=== PATIENT | female | born 1930 | race Caucasian/White ===

== ENCOUNTER 2018-06-16 14:05 | Inpatient (IN) | payer MEDICARE, OTHER ==
[2018-06-16] MEDS ORDERED: NS 0.9% 1000 ML* 1,000 ML IV ONE (14:52)
--- NOTE | 2018-06-16 15:09 | ED ---
Neurological HPI - HPI Summary HPI Summary: A 87 y/o female accompanied by a friend presents to ED c/o confusion. Currently , the patient is fine and has no pain. In the ED room, the patient has a pulse of 77 BPM, O2 saturation of 91% and blood pressure of 174/86. As per triage, " pt here with gentleman. reports she was ill with an upset stomach on Sunday. After that episode pt having difficulty remembering anything after breakfast on Sunday. pt is a/ox4 and able to answer questions in triage". As per friend, the patient has been experiencing confusion for the past 4 days ( since last 06/11/2018). He noted that Sunday (06/10/2018) she was fine. On Sunday when [place], they had breakfast together where that same day she traveled home alone to her apartment. In addition to the confusion, she became "violently ill" on Sunday. The patient stated that on Sunday her stomach was upset and painful, however, doesn't remember anything after. The friend noted that he talks to her everyday and picked her up on Sunday. He brought her here today because she cannot remember the little things such as his dogs name. She was never like that before. The patient noted that she did have abdominal pain, vomiting (4x), diarrhea (4x), constipation and nausea, but that has resolved. Denies any weakness or numbness. Denies PMHx of CVA. SHx of beer or two every night. - History of Current Complaint Chief Complaint: EDNeurologicalDeficit Stated Complaint: CONFUSION Time Seen by Provider: 06/16/18 14:25 Hx Obtained From: Patient Onset/Duration: Sudden Onset, Started days ago Timing: Constant Current Severity: None Number of Seizures: 0 Pain Intensity: 0 Pain Scale Used: 0-10 Numeric Character: Confusion Aggravating: Nothing Alleviating: Nothing Associated Signs and Symptoms: Positive: Confusion, Nausea/Vomiting, Diarrhea. Negative: Numbness, Fever - Allergy/Home Medications Allergies/Adverse Reactions: Allergies Allergy/AdvReac Type Severity Reaction Status Date / Time erythromycin base Allergy Airway Verified 06/16/18 14:15 Obstruction Home Medications: Home Medications Aspirin 81 mg PO SEE INSTRUCTIONS 06/16/18 [History Confirmed 06/16/18] Cholecalciferol (Vitamin D3) [Vitamin D3] 2,000 unit PO DAILY 06/16/18 [History Confirmed 06/16/18] Levothyroxine TAB* [Synthroid 88 MCG TAB*] 88 mcg PO DAILY 06/16/18 [History Confirmed 06/16/18] Lisinopril 10 mg PO DAILY 06/16/18 [History Confirmed 06/16/18] Vit C/E/Zinc/Lutein/Zeaxanthin [Ocuvite [facility]] 1 tab PO DAILY 06/16 [History Confirmed 06/16/18] amLODIPine TAB* 88 mcg PO DAILY 06/16/18 [History Confirmed 06/16/18] PMH/Surg Hx/FS Hx/Imm Hx Endocrine/Hematology History: Reports: Other Endocrine/Hematological Disorders - Thyroid issues Denies: Hx Diabetes Cardiovascular History: Reports: Hx Hypertension - Surgical History Surgery Procedure, Year, and Place: Tonsillectomy, hysterectomy, appendectomy. Infectious Disease History: No Infectious Disease History: Denies: Traveled Outside the [place] in Last 30 Days - Family History Known Family History: Positive: Diabetes Negative: Hypertension - Social History Alcohol Use: Daily Alcohol Amount: 2 beers Substance Use Type: Reports: None Smoking Status (MU): Former Smoker Review of Systems Negative: Fever Positive: Abdominal Pain, Vomiting, Diarrhea, Nausea, Other - POSITIVE: Constipation Neurological: Other - POSITIVE: Confusion All Other Systems Reviewed And Are Negative: Yes Physical Exam - Summary Physical Exam Summary: Appearance: Well appearing, no pain distress Skin: warm, dry, reflects adequate perfusion Head/face: normal Eyes: EOMI, LUIS ENT: normal Neck: supple, non-tender Respiratory: CTA, breath sounds present Cardiovascular: RRR, pulses symmetrical Abdomen: non-tender, soft Bowel: present Musculoskeletal: normal, strength/ROM intact Neuro: normal, sensory motor intact, A&Ox3 GCS: 15 Triage Information Reviewed: Yes Vital Signs On Initial Exam: Initial Vitals Temp Pulse Resp BP Pulse Ox 97.4 F 79 16 148/78 99 06/16/18 14:18 06/16/18 14:18 06/16/18 14:18 06/16/18 14:18 06/16/18 14:18 Vital Signs Reviewed: Yes Diagnostics - Vital Signs Vital Signs Temp Pulse Resp BP Pulse Ox 06/16/18 14:31 76 16 174/86 98 08/26/18 14:18 97.4 F 79 16 148/78 99 - Laboratory Result Diagrams: 06/16/18 15:11 06/16/18 17:05 Lab Statement: Any lab studies that have been ordered have been reviewed, and results considered in the medical decision making process. - Radiology CXR Radiology Interpretation Completed By: Radiologist - No radiographic evidence for acute cardiopulmonary abnormality on this portable chest x-ray. ED PHYSICIAN REVIEWED THIS RADIOLOGY REPORT. - CT BRAIN CT CT Interpretation Completed By: Radiologist - 1. There is asymmetric multifocal hypoattenuation at the right temporal lobe of unknown chronicity in the absence of prior CTs for comparison. If the patient is exhibiting focal neurologic deficits further characterization can be made with MRI of the brain to evaluate for signs of an acute infarction. 2. Otherwise chronic appearing and age- appropriate degenerative changes are noted. ED PHYSICIAN REVIEWED THIS RADIOLOGY REPORT. - EKG 1503 Cardiac Rate: NL - 72 BPM EKG Rhythm: Sinus Rhythm EKG Interpretation: No acute changes NIH Scale - NIH Scale Level of Consciousness: Alert/Keenly Responsive Ask Patient the Month and His/Her Age: Both Correct Ask Pt to Open/Close Eyes and Rn Immunology/Release Non-Paretic Hand: Both Correctly Best Gaze (Only Horizontal Eye Movement): Normal Visual Field Testing: No Visual Loss Facial Paresis-Pt to Smile & Close Eyes or Grimace Symmetry: Normal/Symmetrical Motor Function - Right Arm: No Drift-Holds 10 Seconds Motor Function - Left Arm: No Drift-Holds 10 Seconds Motor Function - Right Leg: No Drift-Holds 10 Seconds Motor Function - Left Leg: No Drift-Holds 10 Seconds Limb Ataxia-Must be out of Proportion to Weakness Present: Absent Sensory (Use Pinprick to Test Arms/Legs/Trunk/Face): Normal Best Language (Describe Picture, Name Items): No Aphasia Dysarthria (Read Several Words): Normal Extinction and Inattention: No Abnormality Total Score: 0 Course/Dx - Course Course Of Treatment: A 87 y/o female accompanied by a friend presents to ED c/o confusion. Currently, the patient is fine and has no pain. In the ED room, the patient has a pulse of 77 BPM, O2 saturation of 91% and blood pressure of 174/ 86. A Brain CT revealed 1. There is asymmetric multifocal hypoattenuation at the right temporal lobe of unknown chronicity in the absence of prior CTs for comparison. If the patient is exhibiting focal neurologic deficits further characterization can be made with MRI of the brain to evaluate for signs of an acute infarction. 2. Otherwise chronic appearing and age-appropriate degenerative changes are noted. A CXR revealed No radiographic evidence for acute cardiopulmonary abnormality on this portable chest x-ray. An EKG revealed NSR of 72 BPM, no acute changes. In the ED course, the patient recieved IV fluids. Patient care was discussed with hospitalist, Dr. Aburto, who accepts patient for admission. Patient will be admitted with a diagnosis of amnesia, altered mental status and TIA. Patient is agreeable with this plan. - Differential Dx Differential Diagnoses Neuro: Positive: Cerebrovascular Accident, Intracranial Bleed, Metabolic Abnormality, Transient Ischemic Attack, Vasovagal Reaction - Diagnoses Provider Diagnoses: Amnesia, Altered mental status, TIA (transient ischemic attack) - Physician Notifications Discussed Care Of Patient With: Love De Souza Time Discussed With Above Provider: 17:15 Instructed by Provider To: Other - Accepts patient for admission. - Critical Care Time Critical Care Time: 30-74 min Discharge - Sign-Out/Discharge Documenting (check all that apply): Patient Departure - ADMIT - Discharge Plan Condition: Stable Disposition: ADMITTED TO [facility] Referrals: No Primary Care Phys,NOPCP [Primary Care Provider] - - Billing Disposition and Condition Condition: STABLE Disposition: Admitted to [facility] - Attestation Statements Document Initiated by Cristhianibnoni: Yes Documenting Scribe: Francisco Pierre Provider For Whom Scribe is Documenting (Include Credential): Kit Hernández MD Scribe Attestation: Francisco Saldivar scribed for Kit Hernández MD on 06/16/18 at 1846. Scribe Documentation Reviewed: Yes Provider Attestation: The documentation as recorded by the Francisco herman accurately reflects the service I personally performed and the decisions made by , Kit Hernández MD
[2018-06-16 15:25] LABS: ABS Basophils 0 10^3/ul (0-0.2); ABS Eosinophils 0.3 10^3/ul (0-0.6); ABS Lymphocytes 1.8 10^3/ul (1.0-4.8); ABS Monocytes 0.6 10^3/ul (0-0.8); ABS Neutrophils 3.7 10^3/ul (1.5-7.7); ABS Nucleated RBC 0 10^3/ul; Eosinophil % 4.9 % (0-6); Hematocrit 42 % (35-47); Hemoglobin 14.3 g/dl (12.0-16.0); Lymphocyte % 27.8 % (25-47); Mean Corpuscular HGB Conc 34 g/dl (31-36); Mean Corpuscular Hemoglobin 33 pg (27-31); Mean Corpuscular Volume 96 fL (80-97); Mean Platelet Volume 8.6 um3 (7.4-10.4); Nucleated Red Blood Cells % 0.1; Platelet Count 288 10^3/ul (150-450); Red Blood Count 4.35 10^6/ul (4.00-5.40); Red Cell Distribution Width 14 % (10.5-15); White Blood Count 6.4 10^3/ul (3.5-10.8)
[2018-06-16 15:33] LABS: INR 0.88 (0.77-1.02)
[2018-06-16 15:40] LABS: EGFR Non-African American 51.3 (>60)
--- NOTE | 2018-06-16 16:07 | RAD ---
INDICATION: Altered mental status COMPARISON: None. TECHNIQUE: Single AP portable view of the chest was obtained. FINDINGS: Image quality is compromised due to the relative inferiority of a portable chest x-ray. The heart and mediastinum exhibit normal size and contour. The lungs are grossly clear. There is no evidence of a large pleural effusion. Visualized bones are normal for the patient's age. IMPRESSION: No radiographic evidence for acute cardiopulmonary abnormality on this portable chest x-ray.
--- NOTE | 2018-06-16 16:07 | RAD ---
INDICATION: Altered mental status COMPARISON: None. TECHNIQUE: Contiguous axial sections of the brain were obtained from the skull base to the vertex without contrast. FINDINGS: The ventricles, cisterns and sulci exhibit symmetrical and age-appropriate involutional changes. At the posterior right temporal lobe there are several subcentimeter foci of hypoattenuation not matched on the contralateral side (axial image 8). There is mild to moderate periventricular and subcortical white matter hypoattenuation most consistent with chronic microvascular disease. The pickens-white matter differentiation is adequately maintained and there is no sulcal effacement. No significant focal abnormality or mass effect is present. There is no evidence for intracranial hemorrhage. No significant focal osseous abnormality is present. The visualized portion of the paranasal sinuses appear clear. The mastoid air cells are well aerated bilaterally. IMPRESSION: 1. There is asymmetric multifocal hypoattenuation at the right temporal lobe of unknown chronicity in the absence of prior CTs for comparison. If the patient is exhibiting focal neurologic deficits further characterization can be made with MRI of the brain to evaluate for signs of an acute infarction. 2. Otherwise chronic appearing and age-appropriate degenerative changes are noted.
[2018-06-16 16:30] LABS: Urine Appearance Clear; Urine Blood Negative (Negative); Urine Color Straw; Urine Ketones Negative (Negative); Urine Protein Negative (Negative); Urine Red Blood Cell Trace(0-2/hpf) (Absent); Urine Specific Gravity 1.004 (1.010-1.030); Urine Urobilinogen Negative (Negative); Urine White Blood Cell Trace(0-5/hpf) (Absent)
[2018-06-16] MEDS ORDERED: Ondansetron INJ* 2 MG/ML VIAL IV PRN (18:05)
[2018-06-16] MEDS ORDERED: Acetaminophen TAB* 325 MG PO PRN (18:05)
[2018-06-16] MEDS ORDERED: Magnesium Sulfate 2 GM IV* 2 GM/50 ML BAG IVPB ONE (18:24)
[2018-06-16] MEDS ORDERED: Aspirin 81 mg CHEW TAB* 81 MG TAB.CHEW PO SCH (19:00)
--- NOTE | 2018-06-16 20:53 | HP ---
CC: Katiana Kimball MD; Lee Morales MD * ADMISSION HISTORY AND PHYSICAL: DATE OF ADMISSION: 06/16/18 PRIMARY CARE PROVIDER: Unknown at this time. MY ATTENDING WHILE IN THE HOSPITAL: Juan Grace MD* (DICTATED BY SOCRATES BAIRES) CONSULTING NEUROLOGISTS: Katiana Kimball MD and Lee Morales MD CHIEF COMPLAINT: Memory loss, confusion x6 days. HISTORY OF PRESENT ILLNESS: Ms. Marin is an 87-year-old female who is very healthy and has past medical history significant for hypertension and hypothyroidism. The patient presented to the emergency department after being brought in by her friend who she is close with after realizing that she has a very large deficit in her memory. The patient states that the last thing she remembers was having breakfast on 06/10/18. Notes from the nursing staff indicate that the patient previously said she was vomiting on Sunday, but she has not recalled this at the time of this interview. The patient was called every day by her friend and her friend states he was concerned through all these days because she was able to converse, but was confused and had very poor memory about both the short and long- term aspects of their relationship including the names of his dogs and the recent things they had done together, but she did remember who he was. The patient states she did not remember anything about these days. She does not have any new bruises, new pains, anything to indicate a fall or head strike. The patient remembers what she ate on breakfast on Sunday and she has had that same meal many times of an egg, hash browns, and sausage. The patient states that she took her meds this morning when her friend was bringing her into the emergency department and that she did notice at that time that all of her meds had been taken for the days when she does not remember anything. The patient denies any weakness, focal deficits. She does feel generally off, but this has been improving after she has been getting fluids. The patient denies ever having anything like this in the past. The patient has no history of atrial fibrillation, coronary artery disease, or CVA. The patient has no history of strokes in her family. The patient at the time of evaluation denies chest pain, shortness of breath, nausea , vomiting, fevers, chills, abdominal pain, diarrhea, dysuria, or other pain. The patient had a CT scan in the emergency department, which showed a possible lesion of undetermined age in the right temporal lobe per the radiologist's report with EKG and chest x-ray that were unremarkable. Due to concern for CVA causing amnesia, we were asked to evaluate the patient for admission to the hospital. PAST MEDICAL HISTORY: 1. Hypertension. 2. Hypothyroidism. PAST SURGICAL HISTORY: 1. Hysterectomy. 2. Appendectomy. 3. Tonsillectomy. MEDICATIONS: 1. Synthroid 88 mcg p.o. daily. 2. Lisinopril 10 mg p.o. daily. 3. Amlodipine 2.5 mg p.o. daily. 4. Aspirin 81 mg p.o. daily. 5. Ocuvite 1 tab p.o. daily. 6. Vitamin D3 of 2000 units p.o. daily. ALLERGIES: ERYTHROMYCIN. FAMILY HISTORY: The patient's father of complications with diabetes. The patient's mother of old age. The patient had siblings, 2 of which of complications with diabetes and 2 of which of old age. SOCIAL HISTORY: The patient smoked for 20 years, having quit 50 years ago. The patient drinks a couple of beers a day. The patient denies illicit drug use ever. The patient used to work as an accounting analyst. The patient is and has no children. REVIEW OF SYSTEMS: A 14-point review of systems was reviewed and is negative except as above in the HPI. PHYSICAL EXAMINATION GENERAL: The patient is an 87-year-old female who appears younger than stated age and sitting comfortably in bed, in no acute distress. VITAL SIGNS: At the time of evaluation, temperature 97.4, pulse rate 76, respiratory rate 16, oxygen saturation 99% on room air, blood pressure 149/78. HEENT: Head: Normocephalic, atraumatic. Sclerae anicteric. No conjunctival injection. Nasal mucosa moist. Oral mucosa moist. No pharyngeal erythema, discharge, or exudate. NECK: Supple. Nontender. No lymphadenopathy. No carotid bruits auscultated. No JVD. RESPIRATORY: Clear to auscultation bilaterally. No wheezes, rales, rhonchi. Good air exchange bilaterally. CARDIAC: Regular rate and rhythm. No clicks, murmurs, gallops, or rubs. Pulses 2+ in the bilateral dorsalis pedis, posterior tibialis, and radial areas. No bilateral lower extremity edema noted. No calf tenderness bilaterally. ABDOMEN: Soft, nontender, nondistended. Bowel sounds present and normoactive in all 4 quadrants. No hepatosplenomegaly. GENITOURINARY: No suprapubic or CVA tenderness. NEURO: Cranial nerves II through XII intact. Strength 4/5 in the bilateral upper and lower extremities distally and proximally. Reflexes 2+ in the bilateral biceps, 1+ in the bilateral patella and Achilles areas bilaterally. Babinski is downgoing bilaterally. Finger taps performed without difficulty or slowing. Gait is slow but normal, not wide based. The patient is able to heel and toe walk. Romberg, pronator drift are negative. PSYCHIATRIC: Very pleasant and cooperative. SKIN: Clean, dry, intact. No rash. LABORATORY DATA: White blood cell count 6.4, hemoglobin 14.3, hematocrit 42, platelet count 288,000. INR 0.88. Sodium 138, potassium 3.8, chloride 105, carbon dioxide 26, anion gap 7, BUN 24, creatinine 1.02, glucose 91. Lactic acid 1.1. Calcium 9.5. Magnesium 1.8. Bilirubin 0.4, AST 15, ALT 13, alkaline phosphatase 68. Total creatine kinase 97. Troponin I of 0.00. Total protein 7.0. Albumin 4.2, globulin 2.8. Lipase 25. Urine specific gravity 1.004. Trace leukocyte esterase. No other significant findings. DIAGNOSTIC STUDIES: Electrocardiogram read as normal sinus rhythm, no ST segment abnormalities, no T-wave changes, rate of 72, QTc of 437, no hypertrophy or enlargement, no other abnormalities, no prior study to compare to. Chest x-ray from 06/16/18 read as no radiographic evidence for acute cardiopulmonary abnormality on this portable chest x-ray. Brain CT read as there is asymptomatic multifocal hypoattenuation of the right temporal lobe of unknown intensity. In the absence of prior CTs for comparison and the patient exhibiting focal neurological deficits, further characterization will be made for the MRI of the brain for acute infarction, otherwise chronic appearing and age appropriate degenerative changes are noted. ASSESSMENT AND PLAN: Ms. Marin is an 87-year-old female with past medical history significant only for hypertension and hypothyroidism who presented to the emergency department with 6 days of amnesia and confusion which is slowly improving with CT with concerning findings for a temporal lobe lesion of undetermined age who is not a tPA candidate, admitted to the hospital for workup to optimize secondary prevention of stroke and to assess for other possible cause of amnesia. 1. Amnesia, possible cerebrovascular accident, possible seizure, possible transient global amnesia. This case has been discussed with Dr. Shy Kimball of Neurology and due to the patient's age, risk factors, and duration of presentation, this most likely will be due to a cerebrovascular accident; however, seizure also needs to be ruled out. MRI of the brain will be obtained to further elucidate possible lesions seen on CT scan. Carotid ultrasound will be obtained as well as a transthoracic echocardiogram and bubble study. The patient has no history of atrial fibrillation and is in normal sinus rhythm in the emergency department. The patient will be continued on her aspirin daily. The patient will not be started on Plavix pending the results of the MRI. The patient will be given supportive care. The patient is improving with regards to her long-term memory which was also absent during her confusion, but she still no longer has any memory from previous 6 days. The patient will be seen in consultation by Dr. Lee Morales on the morning of 06/17/18. 2. Hypertension. The patient is slightly hypertensive. Continue amlodipine and lisinopril. 3. Slightly elevated creatinine. The patient has a slightly elevated creatinine. We have no prior lab work to compare with the patient. The patient has a known history of chronic kidney disease. We will hydrate and recheck in the morning. This likely could represent dehydration from not eating during the patient's amnestic period and could explain her generalized weakness. 4. Hypothyroidism. Continue Synthroid at home dose. Check TSH. 5. DVT prophylaxis. The patient will have heparin subcu and encouraged to ambulate frequently. 6. FEN. The patient will have fluids at 100 mL an hour. The patient's diet will commence after she passes the dysphagia screening. 7. Disposition. The patient is admitted to observation. 8. Code status. The patient wants to be a full code. The patient's surrogate decision maker will her friend, Jeremiah Cota, as above. TIME SPENT: Approximately 60 minutes were spent on the admission of this patient, 30 of which were spent [id number] with the patient and her friend obtaining history and physical and discussing treatment plan. This plan has been discussed with my attending, Dr. Juan Grcae, and he is in agreement. SOCRATES BAIRES [id number]/[facility] #: [id number] JARET
[2018-06-16] MEDS: Heparin VIAL(*) 5000 UNITS/ML VIAL (FIVE THOUSAND) SUBCUT SCH (22:10)
[2018-06-16] MEDS: NS 0.9% 1000 ML* 1,000 ML IV SCH (22:18)
[2018-06-17] MEDS: Heparin VIAL(*) 5000 UNITS/ML VIAL (FIVE THOUSAND) SUBCUT SCH ×3 (05:45→21:20)
[2018-06-17] MEDS: Levothyroxine TAB* 88 MCG TAB PO SCH (05:45)
[2018-06-17 07:06] LABS: ABS Basophils 0 10^3/ul (0-0.2); ABS Eosinophils 0.3 10^3/ul (0-0.6); ABS Lymphocytes 1.4 10^3/ul (1.0-4.8); ABS Monocytes 0.5 10^3/ul (0-0.8); ABS Nucleated RBC 0 10^3/ul; Eosinophil % 7.4 % (0-6); Hematocrit 38 % (35-47); Hemoglobin 12.8 g/dl (12.0-16.0); Lymphocyte % 33.8 % (25-47); Mean Corpuscular HGB Conc 34 g/dl (31-36); Mean Corpuscular Hemoglobin 33 pg (27-31); Mean Corpuscular Volume 95 fL (80-97); Mean Platelet Volume 8.5 um3 (7.4-10.4); Nucleated Red Blood Cells % 0.1; Platelet Count 250 10^3/ul (150-450); Red Blood Count 3.95 10^6/ul (4.00-5.40); Red Cell Distribution Width 13 % (10.5-15); White Blood Count 4.3 10^3/ul (3.5-10.8)
[2018-06-17 07:22] LABS: EGFR Non-African American 79.2 (>60)
[2018-06-17] MEDS: NS 0.9% 1000 ML* 1,000 ML IV SCH (07:29)
[2018-06-17] MEDS: Aspirin 81 mg CHEW TAB* 81 MG TAB.CHEW PO SCH (08:05)
[2018-06-17] MEDS: Cholecalciferol TAB* 1000 UNITS PO SCH (08:05)
[2018-06-17] MEDS: amLODIPine TAB* 5 MG PO SCH (08:06)
[2018-06-17] MEDS: [UNRECOGNIZED DRUG - OTHER] PO SCH (08:10)
[2018-06-17] MEDS: ZEAXANTHIN PO SCH (08:10)
[2018-06-17] MEDS: ZINC PO SCH (08:10)
[2018-06-17] MEDS: LUTEIN PO SCH (08:10)
[2018-06-17] MEDS: VIT C PO SCH (08:10)
[2018-06-17] MEDS ORDERED: Lisinopril TAB* 10 MG PO SCH (09:00)
--- NOTE | 2018-06-17 10:25 | RAD ---
INDICATION: Stroke. COMPARISON: No relevant prior exams available on the [facility] [place] PACS for comparison. TECHNIQUE: Bilateral carotid duplex scan. Stenosis estimations reflect velocity criteria that have been correlated to angiographic stenosis calculations based on distal internal carotid diameter. REPORT: RIGHT ICA: 83 cm/s peak systolic 18 cm/s end diastolic CCA: 73 cm/s peak systolic ICA/CCA peak systolic ratio: 1.1 Moderately severe predominant calcific plaque at the RIGHT carotid bulb extending to the proximal internal carotid artery. Spectral broadening of low resistance internal carotid artery waveforms. Antegrade flow documented at the RIGHT vertebral artery. LEFT ICA: 76 cm/s peak systolic 23 cm/s end diastolic CCA: 87 cm/s peak systolic ICA/CCA peak systolic ratio: 0.9 Smooth margined calcific and noncalcific plaque at the carotid bulb and proximal LEFT internal carotid artery. Spectral broadening of low resistance proximal LEFT internal carotid artery waveform. Antegrade flow documented at the LEFT vertebral artery. IMPRESSION: #. Less than 50% bilateral internal carotid artery stenosis. CPT II Codes: 3100F
--- NOTE | 2018-06-17 17:38 | ECHO ---
Patient: ALEXX SIEGEL [facility] Rec#: [id number] : 1930 Date: 06/17/2018 Age: 87y Height: 168 cm / 66.1 in Weight: 68 kg / 149.9 lbs Sex: F BSA: 1.77 Room#: [facility] Admit Date#: 06/16/2018 Type: Inpatient Referring: Escobar Collazo Reading: Anival Wylie MD [place] Repairer: Alexx Pinedo RN RDCS CC: Katiana Kimball MD Transthoracic Echocardiogram Indication: CVA BP: 152/73 HR: 68 Rhythm: NSR Findings History: HTN, hypothyroidism, former smoker Technical Comments: The study quality is fair. The study is technically limited due to the patient's smoking history. Left Ventricle: The left ventricular chamber size is normal. Moderate concentric left ventricular hypertrophy is observed. Global left ventricular wall motion and contractility are within normal limits. The left ventricle appears hyperdynamic. The estimated ejection fraction is greater than 65%. There is no consistent Doppler evidence of clinically significant diastolic dysfunction. Left Atrium: The left atrial chamber size is normal. Right Ventricle: The right ventricular chamber size and systolic function are within normal limits. The right ventricle wall thickness is mildly increased. Right Atrium: The right atrial cavity size is normal. The bubble study is negative. A patent foramen ovale is not demonstrated with color Doppler and agitated contrast. Aortic Valve: The aortic valve is trileaflet. The aortic valve leaflets are moderately thickened. Systolic excursion of the aortic valve cusps is reduced. There is aortic annular calcification. There is a trace of aortic regurgitation. There is mild aortic stenosis. The mean gradient of the aortic valve is 8 mmHg. The peak instantaneous gradient of the aortic valve is 12 mmHg. The aortic valve area, by peak velocities, is calculated at 1.9 cm2. The aortic valve area, by VTI's, is calculated at 1.7 cm2. Mitral Valve: There is mitral annular calcification. The mitral valve leaflets are mildly thickened. There is mild mitral regurgitation. There is no evidence of mitral stenosis. Tricuspid Valve: The tricuspid valve leaflets are normal. There is trace to mild tricuspid regurgitation. No pulmonary hypertension is noted. There is no tricuspid stenosis. Pulmonic Valve: The pulmonic valve appears normal. There is a trace pulmonic regurgitation. There is no pulmonic stenosis. Pericardium: There is no significant pericardial effusion. A pericardial fat pad is visualized. Aorta: There is no dilatation of the ascending aorta. The aortic arch is not well visualized. There is no dilation of the aortic root. Pulmonary Artery: The main pulmonary artery is not well visualized. Venous: The venous system is not well visualized. The inferior vena cava is not visualized. Contrast: Normal saline was used as contrast for the bubble study. Images 1 and 2. Summary: There was not any prior study for comparison. Conclusions Global left ventricular wall motion and contractility are within normal limits. The estimated ejection fraction is greater than 65%. There is no consistent Doppler evidence of clinically significant diastolic dysfunction. The right ventricular chamber size and systolic function are within normal limits. A patent foramen ovale is not demonstrated with color Doppler and agitated contrast. There is mild aortic stenosis. The mean gradient of the aortic valve is 8 mmHg. There is mild mitral regurgitation. There is trace to mild tricuspid regurgitation. No pulmonary hypertension is noted. There is no significant pericardial effusion. Measurements Name Value Normal Range RVDdMajor (2D) 3 cm (2.2 - 4.4) RVAW (2D) 0.6 cm (0.2 - 0.5) RAd ISD 4CH 4.8 cm (3.4 - 4.9) RA (A4C)W 3.6 cm (2.9 - 4.6) IVSd (2D) 1.5 cm (0.6 - 1) LVPWd (2D) 1.3 cm (0.6 - 1) LVIDd (2D) 3.9 cm (3.6 - 5.4) LVIDs (2D) 203 cm - LV FS (2D) 41 % (25 - 45) Aortic Annulus 2.1 cm (1.4 - 2.6) Ao root diameter (2D) 3 cm (2.1 - 3.5) Ascending Ao 3.4 cm (2.1 - 3.4) LA dimension (AP) 2D 3.6 cm (2.3 - 3.8) LAd ISD 4CH 4.5 cm (2.9 - 5.3) LA ISD 4CH W 4.4 cm (2.5 - 4.5) Name Value Normal Range LA ESV BP (A/L) index 23.7 ml/m2 - Name Value Normal Range MV E-wave Vmax 0.87 m/sec - MV deceleration time 342 msec - MV A-wave Vmax 1.2 m/sec - MV E:A ratio 0.7 ratio - LV septal e' Vmax 0.06 m/sec - LV lateral e' Vmax 0.07 m/sec - LV E:e' septal ratio 14.5 ratio - LV E:e' lateral ratio 12.4 ratio - Name Value Normal Range AV Vmax 1.8 m/sec - AV VTI 45.4 cm - AV peak gradient 12 mmHg - AV mean gradient 8 mmHg - LVOT diameter 1.9 cm - LVOT Vmax 1.2 m/sec - LVOT VTI 27.2 cm - LVOT peak gradient 5 mmHg - LVOT mean gradient 3 mmHg - DOI (VTI) 0.6 ratio - DOI (Vmax) 0.67 ratio - HAFSA (continuity Vmax) 1.9 cm2 - HAFSA (continuity VTI) 1.7 cm2 - Name Value Normal Range TR Vmax 2.5 m/sec - TR peak gradient 25 mmHg - RAP 8 mmHg - RVSP 33 mmHg - Name Value Normal Range PV Vmax 0.9 m/sec -
--- NOTE | 2018-06-17 17:42 | PN ---
Subjective Date of Service: 06/17/18 Interval History: Mrs. Marin reports doing well. She denies any weakness, numbness, headaches, visual changes or slurred speech. She recalls events since admission to hospital last night. Tolerating diet, denies any complaints. Waiting for her MRI scheduled this afternoon. To be seen by neurology for consultation. Family History: Unchanged from Admission Social History: Unchanged from Admission Past Medical History: Unchanged from Admission Objective Active Medications: Acetaminophen (Tylenol Tab*) 650 mg PO Q6H PRN PRN Reason: FEVER/PAIN Amlodipine Besylate (Norvasc Tab*) 2.5 mg PO DAILY [facility] Last Admin: 06/17/18 08:06 Dose: 2.5 mg Aspirin (Aspirin 81 Mg Chew Tab*) 81 mg PO DAILY [facility] Last Admin: 06/17/18 08:05 Dose: 81 mg Cholecalciferol (Vitamin D Tab*) 2,000 units PO DAILY [facility] Last Admin: 06/17/18 08:05 Dose: 2,000 units Heparin Sodium (Porcine) (Heparin Vial(*)) 5,000 units SUBCUT Q8HR [facility] Last Admin: 06/17/18 13:16 Dose: 5,000 units Levothyroxine Sodium (Synthroid Tab*) 88 mcg PO 0600 [facility] Last Admin: 06/17/18 05:45 Dose: 88 mcg Lisinopril (Prinivil Tab*) 10 mg PO DAILY [facility] Last Admin: 06/17/18 08:06 Dose: 10 mg Non-Formulary Medication (Vit C/E/Zinc/Lutein/Zeaxanthin [[facility] Gummies]) 1 tab PO DAILY [facility] Last Admin: 06/17/18 08:10 Dose: Not Given Ondansetron HCl (Zofran Inj*) 4 mg IV Q6H PRN PRN Reason: NAUSEA Vital Signs - 8 hr 06/17/18 06/17/18 12:00 15:30 Temperature 97.4 F 97.4 F Pulse Rate 66 70 Respiratory 14 18 Rate Blood Pressure 173/65 183/69 (mmHg) O2 Sat by Pulse 97 98 Oximetry Oxygen Devices in Use Now: None Appearance: Appears comfortable and in NAD Eyes: No Scleral Icterus, PERRLA Ears/Nose/Mouth/Throat: Clear Oropharnyx, Mucous Membranes Moist Neck: NL Appearance and Movements; NL JVP, Trachea Midline Respiratory: Symmetrical Chest Expansion and Respiratory Effort, Clear to Auscultation Cardiovascular: NL Sounds; No Murmurs; No JVD, RRR Abdominal: NL Sounds; No Tenderness; No Distention Extremities: No Edema Neurological: Alert and Oriented x 3, NL Sensation, NL Muscle Strength and Tone Nutrition: Taking PO's Result Diagrams: 06/17/18 06:48 06/17/18 06:48 Microbiology and Other Data: Microbiology 06/16/18 16:19 Urine Culture - Final Urine No Growth (<1,000 CFU/mL) Diagnostic Imaging: Patient Name: ALEXX MARIN Medical Record#: [id number] Ordering Physician: Escobar CROWELL Acct.#: [id number] : 1930 Age: 87 Sex: F Location: [address] [place] [address] MEDICAL/TELEMETRY Exam Date: 06/16/181804 ADM Status: ADM Triny Order Information: VL CAROTID BILATERAL Accession Number: [id number] CPT: 17900 INDICATION: Stroke. IMPRESSION: #. Less than 50% bilateral internal carotid artery stenosis. CPT II Codes: 3100F <Electronically signed by Shahram Mcclure MD in OV> 06/17/18 1021 Order Information: CT BRAIN WO Accession Number: [id number] CPT: 47081 INDICATION: Altered mental status IMPRESSION: 1. There is asymmetric multifocal hypoattenuation at the right temporal lobe of unknown chronicity in the absence of prior CTs for comparison. If the patient is exhibiting focal neurologic deficits further characterization can be made with MRI of the brain to evaluate for signs of an acute infarction. 2. Otherwise chronic appearing and age-appropriate degenerative changes are noted. <Electronically signed by Yaakov Ybarra MD in OV> 06/16/18 1603 EKG Data: Echo with following conclusions: Global left ventricular wall motion and contractility are within normal limits. The estimated ejection fraction is greater than 65%. There is no consistent Doppler evidence of clinically significant diastolic dysfunction. The right ventricular chamber size and systolic function are within normal limits. A patent foramen ovale is not demonstrated with color Doppler and agitated contrast. There is mild aortic stenosis. The mean gradient of the aortic valve is 8 mmHg. There is mild mitral regurgitation. There is trace to mild tricuspid regurgitation. No pulmonary hypertension is noted. There is no significant pericardial effusion. Assess/Plan/Problems-Billing Assessment: An 87 y/o female with PMH HTN and hypothyroidism, presents to ED with 6 days history of amnesia and confusion, slowly getting better, and with CT findings suspicious for temporal lobe lesion of undetermined age, who is not a tPA candidate at this point, admitted for further workup and prevention of possible future strokes. - Patient Problems (1) Amnesia memory loss Current Visit: Yes Status: Acute Comment: - Appears to be clinically improving with time - MRI pending - Await neurological consultation - Neurochecks with no deficits or neurological issues since admission - Carotid Dopplers with <50% occlusion bilat. - Continue ASA, no Plavix yet pending results of MRI (2) Stroke Current Visit: Yes Status: Acute Comment: - Possible stroke based on sympotms vs TIA - EEC done, no seizure activities (3) Hypertension Current Visit: Yes Status: Acute Comment: - Hypertensive today, increased Lisinopril dose to 40mg daily starting tomorrow - A single additional dose of Lisinopril 30mg today - Asymptomatic (4) Hypothyroidism Current Visit: Yes Status: Acute Comment: - Continue Levothyroxine (5) DVT prophylaxis Current Visit: Yes Status: Acute Comment: - Sub Q Heparin (6) Full code status Current Visit: Yes Status: Acute Status and Disposition: Inpatient for further workup and neurological consultation. Anticipate discharge to home once medically stable.
[2018-06-17] MEDS ORDERED: Lisinopril TAB* 10 MG PO ONE (18:10)
[2018-06-17] MEDS ORDERED: Gadoteridol* (CONTRAST) 279.3 MG/ML 10 ML IV ONE (20:17)
--- NOTE | 2018-06-17 22:09 | RAD ---
EXAM: MR Head Without And With Intravenous Contrast EXAM DATE/TIME: 06/17/2018 8:40 PM CLINICAL HISTORY: The patient age is 87 years old and is female; Signs and symptoms; Altered mental status/memory loss; Confusion or disorientation; Patient HX: Pt has worsening confusion and short term memory loss; Additional info: Possible CVA Facility exam id and description: Mr brain wwo mri brain w/wo TECHNIQUE: Magnetic resonance images of the head/brain without and with intravenous contrast in multiple planes. CONTRAST: 16 mL of PROHANCE administered intravenously. COMPARISON: BRAIN WO CT BRAIN WO 06/16/2018 3:25 PM FINDINGS: Brain: Restricted diffusion is identified within the left thalamus anteriorly, with possible mild involvement of the basal ganglia, consistent with an acute infarct. There are scattered foci of high FLAIR signal intensity within the cerebral white matter. There is no mass effect or restricted diffusion associated with these foci. In a patient this age, this likely represents chronic small vessel ischemic disease. There is a branching focus of enhancement within the right cerebellar lobe, consistent with a developmental venous anomaly. T2 hyperintense chronic lacunar infarcts are identified within the cerebellar lobes, mostly on the right side. There is a T2 hypointense focus in a left parafalcine region, consistent with calcification correlated with CT images. Ventricles: There is moderate prominence of the ventricles and sulci, compatible with atrophy. Bones/joints: No acute abnormality. Sinuses: Effusion is visualized within a right mid ethmoid air cell. Mastoid air cells: No mastoid effusion. Orbits: Bilateral orbital lens implants are identified. IMPRESSION: 1. Restricted diffusion is identified within the left thalamus anteriorly, with possible mild involvement of the basal ganglia, consistent with an acute infarct. 2. There are scattered foci of high FLAIR signal intensity within the cerebral white matter. In a patient this age, this likely represents chronic small vessel ischemic disease. 3. Moderate atrophy. 4. There is a branching focus of enhancement within the right cerebellar lobe, consistent with a developmental venous anomaly. 5. Incidental/non-acute findings are described above.
--- NOTE | 2018-06-17 22:45 | CONS ---
NEUROLOGY CONSULTATION: DATE OF CONSULT: 06/17/18. LOCATION: The patient is an inpatient in room 451. REFERRING PROVIDER: SOCRATES Kumar CHIEF COMPLAINT: Memory impairment. HISTORY OF PRESENT ILLNESS: Lina Marin is very nice 87-year-old right-handed woman who presented to the hospital yesterday with altered memory. She is currently unaccompanied and so, the history is from the chart and the patient. She is still impaired, although she says currently she feels as good as she has felt since she has been here and back to normal. After we talked further and I examined her, she agrees that her memory is not normal. She remembers that she was in her home in [place]. She thinks she was fine earlier in the week. A friend who sees her regularly and stops by came and picked her up yesterday to bring I believe his daughter to [place]. It became evident that she had significant cognitive impairment and so, she was brought to the emergency room yesterday evening by her friend. She lives in [place] and apparently her friend does as well. According to the admission note, she recalled Sunday and that she was having some significant intestinal problems on Sunday. She does not remember much else, but does recall coming into [place] with her friend yesterday and that her memory was not right. She is not sure if she had memory problems prior to that, but according to the emergency room admission notes, her friends said that her memory is usually fine and this is a new problem. She denies any history of epilepsy or stroke. She does recall that she saw her primary care physician last week or 2 up in [place] and had her thyroid medication adjusted. She does not recall the name of her primary care provider , however. She does not think that she fell and she does not have any headache. She said she normally walks unaided, but sometimes would use a cane. PAST MEDICAL HISTORY: Apparently notable for hypertension, hypothyroidism. She denies any history of heart disease. MEDICATIONS: At home are: 1. Aspirin 81 mg p.o. q. day. 2. Vitamin D 2000 units p.o. q. day. 3. Levothyroxine 88 mcg p.o. q. day. 4. Lisinopril 10 mg p.o. q. day. 5. Amlodipine 5 mg p.o. q. day. ALLERGIES: She is allergic to ERYTHROMYCIN. SOCIAL HISTORY: She lives alone. Her friend visits apparently fairly often. She does not have any family in the area. She does not smoke. She apparently has a beer several times a week. REVIEW OF SYSTEMS: From the patient is negative for headaches, head injury, or seizures. She denies shortness of breath, chest pain, or heart disease. She denies weight loss or fevers or chills. She does not notice any change in vision. Many years ago she experienced vertigo and had used a cane for a while and took medicines for dizziness, but that was years ago to the best of her recollection. PHYSICAL EXAM: She is well nourished and well hydrated. Temperature 97.4 orally, heart rate in the 60s and regular, blood pressure most recently 183/70, respiratory rate is 18, oxygen saturation is 98% on room air. Lungs are clear. Heart is in a regular rate and rhythm without murmurs heard. Oral mucosa is moist and atraumatic. Head is atraumatic. Neck is supple. There are no cervical bruits. Neurologic Exam: Pupils react equally from 3 to 2 mm. Eye movements are normal. Funduscopic exam reveals sharp discs bilaterally. Visual calabrese are full to confrontation. Facial sensation to light touch is symmetric. Facial musculature is notable for flattening of the right nasolabial fold. Tongue protrudes in the midline and speech is soft, but clear. She is a little hard of hearing. Motor exam reveals some paratonia, but good strength proximally and distally in upper and lower extremities. There is no drift of any of the extremities. Sensory exam to light touch and vibration is intact other than absent vibration in the toes. Reflexes are brisk and symmetric at the knees, trace at the ankles. Plantar response is equivocal on the left and flexor on the right. Finger taps are slow bilaterally, but symmetrical. I did not attempt to ambulate her. She is alert and oriented to person, [place], and hospital. She does not recall the name of the hospital. She knows the month and the year. She does not recall the date. She can spell the word world forwards and backwards. She has great difficulty in quoting 3 items to recall and can recall just 1 out of 3 several minutes later. Language is otherwise generally fluent. DIAGNOSTIC STUDIES/LAB DATA: Includes a normal chemistry profile other than creatinine of 1.02 when she came in which came down to 0.7 this morning. Magnesium is little bit low at 1.8. Her TSH is quite low at 0.05 and total T3 is low at 66. Thyroxine is normal at 10.16. INR and PTT are normal. Urinalysis is normal for low urine specific gravity of 1.004 and is otherwise unremarkable. CT scan of the brain is reviewed and reveals hypodensity in the left thalamus and also in the right temporal lobe. There are no prior scans for comparison. Carotid ultrasound does not reveal any significant stenosis bilaterally. Transthoracic echocardiogram does not reveal any significant abnormalities. IMPRESSION AND PLAN: Impression is that of apparently fairly abrupt cognitive decline, particularly in regards to short-term memory, but also orientation. Her CT scan does suggest cerebrovascular disease of indeterminate age. An MRI of the brain is pending for tomorrow and that should be helpful. She also has mixed thyroid abnormalities including a low T3 and a low TSH. She apparently recently had her thyroid medication changed, but we do not have any records and we need to try to find out who her primary care provider is and contact him. She had an EEG earlier today, which revealed diffuse slowing, but no epileptiform abnormalities. Recommend checking a free T4 level to try to sort out what is going on with the thyroid. Recommend just continuing aspirin for now as there is no clear evidence if she has had an acute cerebrovascular accident and so, I would not recommend dual antiplatelet therapy or other anticoagulants at this point. She is on telemetry and that should be continued. We will continue to follow her along with you. [id number]/[facility] #: [id number] JARET
--- NOTE | 2018-06-17 23:01 | EEG ---
ELECTROENCEPHALOGRAPHY: DATE OF STUDY: 06/17/18 REFERRING PROVIDER: SOCRATES Kumar LOCATION: She is an inpatient in room 451. CLINICAL PROBLEM: Confusion, amnesia for at least several days. MEDICATIONS: Include, 1. Levothyroxine. 2. Amlodipine. 3. Lisinopril. 4. Ondansetron. REPORT: This 16-channel EEG is remarkable for background rhythms consisting of diffuse low amplitude, low voltage activity with some central delta activity and a posterior rhythm approximating 6 to 7 cycles per second symmetrically. Lower voltage faster rhythms are seen bifrontally. The patient is clinically awake. The patient may drowse with increase in amplitude of central slowing and bitemporal theta rhythms noted, but stage II sleep is not clearly achieved. Activation procedures are not attempted. There are no clinical events. There are no focal, lateralized or epileptiform abnormalities. CLINICAL IMPRESSION: Abnormal EEG due to generalized slowing of background rhythms diffusely. This tracing is compatible with diffuse cerebral dysfunction , but there are no focal or epileptiform features to this recording. [id number]/[facility] #: [id number] [facility]
[2018-06-18] MEDS: Heparin VIAL(*) 5000 UNITS/ML VIAL (FIVE THOUSAND) SUBCUT SCH ×3 (05:43→22:09)
[2018-06-18] MEDS: Levothyroxine TAB* 88 MCG TAB PO SCH (05:43)
[2018-06-18] MEDS: Lisinopril TAB* 10 MG PO SCH (09:22)
[2018-06-18] MEDS: amLODIPine TAB* 5 MG PO SCH (09:22)
[2018-06-18] MEDS: Aspirin 81 mg CHEW TAB* 81 MG TAB.CHEW PO SCH (09:23)
[2018-06-18] MEDS: ZEAXANTHIN PO SCH (09:23)
[2018-06-18] MEDS: [UNRECOGNIZED DRUG - OTHER] PO SCH (09:23)
[2018-06-18] MEDS: ZINC PO SCH (09:23)
[2018-06-18] MEDS: LUTEIN PO SCH (09:23)
[2018-06-18] MEDS: VIT C PO SCH (09:23)
[2018-06-18] MEDS: Cholecalciferol TAB* 1000 UNITS PO SCH (09:23)
[2018-06-18] MEDS ORDERED: Iohexol 350* (CONTRAST) 500 ML MDV IV ONE (11:21)
[2018-06-18] MEDS: Clopidogrel TAB* 75 MG PO SCH (12:13)
--- NOTE | 2018-06-18 14:42 | PN ---
Subjective Date of Service: 06/18/18 Interval History: Patient was seen and examined at bedside. Both daughter and niece were visiting. Patient reports doing well, denies weakness, numbness, slurred speech , headaches or visual changes. Had her MRI done last night, reviewed with Dr. Morales for further recommendations. Patient aware about findings consistent with stroke, still anxious to go home is medically stable. She has no complaints today. Family History: Unchanged from Admission Social History: Unchanged from Admission Past Medical History: Unchanged from Admission Objective Active Medications: Acetaminophen (Tylenol Tab*) 650 mg PO Q6H PRN PRN Reason: FEVER/PAIN Amlodipine Besylate (Norvasc Tab*) 2.5 mg PO DAILY [facility] Last Admin: 06/18/18 09:22 Dose: 2.5 mg Aspirin (Aspirin 81 Mg Chew Tab*) 81 mg PO DAILY [facility] Last Admin: 06/18/18 09:23 Dose: 81 mg Atorvastatin Calcium (Lipitor*) 40 mg PO 1700 [facility] Cholecalciferol (Vitamin D Tab*) 2,000 units PO DAILY [facility] Last Admin: 06/18/18 09:23 Dose: 2,000 units Clopidogrel Bisulfate (Plavix Tab*) 75 mg PO DAILY [facility] Last Admin: 06/18/18 12:13 Dose: 75 mg Heparin Sodium (Porcine) (Heparin Vial(*)) 5,000 units SUBCUT Q8HR [facility] Last Admin: 06/18/18 05:43 Dose: 5,000 units Levothyroxine Sodium (Synthroid Tab*) 88 mcg PO 0600 [facility] Last Admin: 06/18/18 05:43 Dose: 88 mcg Lisinopril (Prinivil Tab*) 40 mg PO DAILY [facility] Last Admin: 06/18/18 09:22 Dose: 40 mg Non-Formulary Medication (Vit C/E/Zinc/Lutein/Zeaxanthin [[facility]]) 1 tab PO DAILY [facility] Last Admin: 06/18/18 09:23 Dose: Not Given Ondansetron HCl (Zofran Inj*) 4 mg IV Q6H PRN PRN Reason: NAUSEA Vital Signs - 8 hr 06/18/18 06/18/18 06/18/18 07:49 07:55 11:25 Temperature 97.6 F 97.8 F Pulse Rate 90 72 Respiratory 16 20 20 Rate Blood Pressure 162/72 172/69 (mmHg) O2 Sat by Pulse 97 97 Oximetry Oxygen Devices in Use Now: None Appearance: Appears comfortable and in NAD Eyes: No Scleral Icterus, PERRLA Ears/Nose/Mouth/Throat: Clear Oropharnyx, Mucous Membranes Moist Neck: NL Appearance and Movements; NL JVP, Trachea Midline Respiratory: Symmetrical Chest Expansion and Respiratory Effort, Clear to Auscultation Cardiovascular: NL Sounds; No Murmurs; No JVD, RRR Abdominal: NL Sounds; No Tenderness; No Distention Extremities: No Edema Neurological: Alert and Oriented x 3, NL Sensation, NL Muscle Strength and Tone Nutrition: Taking PO's Result Diagrams: 06/17/18 06:48 06/17/18 06:48 Additional Lab and Data: . Microbiology and Other Data: Microbiology 06/16/18 16:19 Urine Culture - Final Urine No Growth (<1,000 CFU/mL) Diagnostic Imaging: [facility] Patient Name:ALEXX SIEGEL MR: [id number] : 1929 MRI brain with the following: IMPRESSION: 1. Restricted diffusion is identified within the left thalamus anteriorly, with possible mild involvement of the basal ganglia, consistent with an acute infarct. 2. There are scattered foci of high FLAIR signal intensity within the cerebral white matter. In a patient this age, this likely represents chronic small vessel ischemic disease. 3. Moderate atrophy. 4. There is a branching focus of enhancement within the right cerebellar lobe, consistent with a developmental venous anomaly. 5. Incidental/non-acute findings are described above. <Electronically signed by Jakob Gatica MD in OV> 06/17/182208 This report is only to be considered final once signed by the Provider(s) as displayed in the "<Electronically Signed by >" field (s). Absence of a signature indicates the report is in a draft status and still needs to be finalized. In the event this document was created by someone other than the signing Provider, the individual initiating the document will be listed in the "Entered by:" or "Dictated by:" calabrese. 2 of 2 EKG Data: . Assess/Plan/Problems-Billing Assessment: An 87 y/o female with PMH HTN and hypothyroidism, presents to ED with 6 days history of amnesia and confusion, slowly getting better, and with CT findings suspicious for temporal lobe lesion of undetermined age, who is not a tPA candidate at this point, admitted for further workup and prevention of possible future strokes. - Patient Problems (1) Amnesia memory loss Current Visit: Yes Status: Acute Comment: - Appears to be clinically improving with time - MRI showing acute infarct to thalamus and basal ganglia consistent with stroke - Spoke with Dr. Morales, will intiate dual platlets therapy with ASA and Plavix. Will check lipid panel in AM. Lipitor 40mg to start thsi evening. CTA head and neck has been ordered and results are pending at this time. - Neurochecks with no deficits or neurological issues since admission - Carotid Dopplers with <50% occlusion bilat. - Medical optimization to reduce risk for future strokes - Patient and family aware and agree to plans - PT and speech consult pending (2) Stroke Current Visit: Yes Status: Acute Comment: - Evident on MRI, CTA head and neck pending - EEC done, no seizure activities (3) Hypertension Current Visit: Yes Status: Acute Comment: - Hypertensive today, increased Lisinopril dose to 40mg daily - Asymptomatic (4) Hypothyroidism Current Visit: Yes Status: Acute Comment: - Continue Levothyroxine (5) DVT prophylaxis Current Visit: Yes Status: Acute Comment: - Sub Q Heparin (6) Full code status Current Visit: Yes Status: Acute Status and Disposition: Inpatient. Anticipate discharge to home once medically stable.
[2018-06-18] MEDS: Atorvastatin* 40 MG TAB PO SCH (15:12)
--- NOTE | 2018-06-18 15:38 | RAD ---
INDICATION: CVA. COMPARISON: Comparison is made with a prior MRI of the brain from June 17, [address] of the brain from June 16, 2018. Correlation is also made with a chronic oblique ultrasound study from June 17, 2018. TECHNIQUE: A CT angiogram of the head and neck was performed following intravenous injection of 80 ml of Omnipaque 350 nonionic contrast. Contiguous axial sections were obtained from the thoracic inlet through the skull vertex. Images were reconstructed in the coronal and sagittal planes and in a 3-D volume rendered format. The distal cervical internal carotid artery diameter is used as the denominator for stenosis measurement. FINDINGS: RIGHT CAROTID: There is mild/moderate calcific and soft plaque present within the carotid bulb and proximal internal carotid artery causing approximately 30-40% stenosis. No hemodynamically significant stenosis is seen. LEFT CAROTID: There is mild soft and calcific plaque present within the carotid bulb and proximal internal carotid artery causing approximately 20-30% stenosis. No hemodynamically significant stenosis is seen. VERTEBRALS: There is a dominant left vertebral artery. The right vertebral arteries tapers and becomes very small at the level of the skull base. CTA BRAIN: The internal carotid, anterior and middle cerebral arteries appear patent without evidence for high-grade stenosis or occlusion. There is moderate calcific plaque present within the cavernous portion of the internal carotid arteries on both sides. The basilar artery appears patent. The posterior cerebral arteries appear patent without evidence for significant stenosis or occlusion. Both posterior cerebral arteries appear to arise from the posterior communicating arteries consistent with normal variation. There is a focal area of decreased density in the region of the left thalamus which correlates with the area of restricted diffusion on the prior MRI study consistent with an infarct. No aneurysm or vascular malformation is seen. NECK: No significant enlarged lymph nodes are seen within the neck. The thyroid, parotid and submandibular glands appear to be within normal limits. The lung apices appear clear. The paranasal sinuses and mastoid air cells appear clear IMPRESSION: 1. NO EVIDENCE FOR HEMODYNAMICALLY SIGNIFICANT CAROTID STENOSIS. 2. NO EVIDENCE FOR LARGE VESSEL INTRACRANIAL THROMBUS. 3. INFARCT IN THE REGION OF THE LEFT THALAMUS NOTED ON THE PRIOR MRI STUDY. CPT II Codes: 3100F
[2018-06-19] MEDS: Heparin VIAL(*) 5000 UNITS/ML VIAL (FIVE THOUSAND) SUBCUT SCH ×3 (05:45→22:29)
[2018-06-19] MEDS: Levothyroxine TAB* 88 MCG TAB PO SCH (05:45)
[2018-06-19] MEDS: [UNRECOGNIZED DRUG - OTHER] PO SCH (09:35)
[2018-06-19] MEDS: ZEAXANTHIN PO SCH (09:35)
[2018-06-19] MEDS: LUTEIN PO SCH (09:35)
[2018-06-19] MEDS: VIT C PO SCH (09:35)
[2018-06-19] MEDS: ZINC PO SCH (09:35)
[2018-06-19] MEDS: Lisinopril TAB* 10 MG PO SCH (09:37)
[2018-06-19] MEDS: Clopidogrel TAB* 75 MG PO SCH (09:37)
[2018-06-19] MEDS: Aspirin 81 mg CHEW TAB* 81 MG TAB.CHEW PO SCH (09:37)
[2018-06-19] MEDS: amLODIPine TAB* 5 MG PO SCH (09:37)
[2018-06-19] MEDS: Cholecalciferol TAB* 1000 UNITS PO SCH (09:37)
--- NOTE | 2018-06-19 15:12 | PN ---
Subjective Date of Service: 06/19/18 Interval History: Mrs. Siegel reports doing very well. She continues to improve daily. Had her PT and speech therapy done earlier. Her niece, Amelie, is present in room, involved with care and discharge planning. She tells me that she has an apartment ready for Alexx in her home in [facility]. She has been independent for years, refuse the idea of SNF placement, however, they are agreeable to home health care visit with PT and speech therapy. Family History: Unchanged from Admission Social History: Unchanged from Admission Past Medical History: Unchanged from Admission Objective Active Medications: Acetaminophen (Tylenol Tab*) 650 mg PO Q6H PRN PRN Reason: FEVER/PAIN Amlodipine Besylate (Norvasc Tab*) 2.5 mg PO DAILY [facility] Last Admin: 06/19/18 09:37 Dose: 2.5 mg Aspirin (Aspirin 81 Mg Chew Tab*) 81 mg PO DAILY [facility] Last Admin: 06/19/18 09:37 Dose: 81 mg Atorvastatin Calcium (Lipitor*) 40 mg PO 1700 [facility] Last Admin: 06/18/18 15:12 Dose: 40 mg Cholecalciferol (Vitamin D Tab*) 2,000 units PO DAILY [facility] Last Admin: 06/19/18 09:37 Dose: 2,000 units Clopidogrel Bisulfate (Plavix Tab*) 75 mg PO DAILY [facility] Last Admin: 06/19/18 09:37 Dose: 75 mg Heparin Sodium (Porcine) (Heparin Vial(*)) 5,000 units SUBCUT Q8HR [facility] Last Admin: 06/19/18 05:45 Dose: 5,000 units Levothyroxine Sodium (Synthroid Tab*) 88 mcg PO 0600 [facility] Last Admin: 06/19/18 05:45 Dose: 88 mcg Lisinopril (Prinivil Tab*) 40 mg PO DAILY [facility] Last Admin: 06/19/18 09:37 Dose: 40 mg Non-Formulary Medication (Vit C/E/Zinc/Lutein/Zeaxanthin [[facility]]) 1 tab PO DAILY [facility] Last Admin: 06/19/18 09:35 Dose: Not Given Ondansetron HCl (Zofran Inj*) 4 mg IV Q6H PRN PRN Reason: NAUSEA Oxygen Devices in Use Now: None Appearance: Appears comfortable and in NAD Eyes: No Scleral Icterus, PERRLA Ears/Nose/Mouth/Throat: Clear Oropharnyx, Mucous Membranes Moist Neck: Trachea Midline Respiratory: Symmetrical Chest Expansion and Respiratory Effort, Clear to Auscultation Cardiovascular: NL Sounds; No Murmurs; No JVD, RRR Abdominal: NL Sounds; No Tenderness; No Distention Extremities: No Edema Neurological: Alert and Oriented x 3, NL Sensation, NL Muscle Strength and Tone Nutrition: Taking PO's Result Diagrams: 06/17/18 06:48 06/17/18 06:48 Additional Lab and Data: . Microbiology and Other Data: Microbiology 06/16/18 16:19 Urine Culture - Final Urine No Growth (<1,000 CFU/mL) Diagnostic Imaging: Patient Name: ALEXX SIEGEL Medical Record#: [id number] Ordering Physician: Ryan CROWELL Acct.#: [id number] : 1930 Age: 87 Sex: F Location: [address] [place] [address] - MEDICAL/TELEMETRY Exam Date: 06/18/18 100 ADM Status: ADM IN Order Information: CTA HEAD/NECK Accession Number: [id number] CPT: 29505 INDICATION: CVA. IMPRESSION: 1. NO EVIDENCE FOR HEMODYNAMICALLY SIGNIFICANT CAROTID STENOSIS. 2. NO EVIDENCE FOR LARGE VESSEL INTRACRANIAL THROMBUS. 3. INFARCT IN THE REGION OF THE LEFT THALAMUS NOTED ON THE PRIOR MRI STUDY. EKG Data: . Assess/Plan/Problems-Billing Assessment: An 87 y/o female with PMH HTN and hypothyroidism, presents to ED with 6 days history of amnesia and confusion, slowly getting better, and with CT findings suspicious for temporal lobe lesion of undetermined age, who is not a tPA candidate at this point, admitted for further workup and prevention of possible future strokes. - Patient Problems (1) Amnesia memory loss Current Visit: Yes Status: Acute Comment: - Appears to be clinically improving with time - MRI showing acute infarct to thalamus and basal ganglia consistent with stroke - Spoke with Dr. Morales, will intiate dual platlets therapy with ASA and Plavix. Will check lipid panel in AM. Lipitor 40mg to start thsi evening. CTA head and neck revealed normal vessels. - Neurochecks with no deficits or neurological issues since admission - Carotid Dopplers with <50% occlusion bilat. - Medical optimization to reduce risk for future strokes - Patient and family aware and agree to plans - PT and speech consults appreciated. - multimedia project manager involved, plans for discharge tomorrow to home with home care visits (2) Stroke Current Visit: Yes Status: Acute Comment: - Evident on MRI, CTA head and neck - EEC done, no seizure activities (3) Hypertension Current Visit: Yes Status: Acute Comment: - Hypertensive today, increased Lisinopril dose to 40mg daily - Asymptomatic (4) Hypothyroidism Current Visit: Yes Status: Acute Comment: - Continue Levothyroxine (5) DVT prophylaxis Current Visit: Yes Status: Acute Comment: - Sub Q Heparin (6) Full code status Current Visit: Yes Status: Acute Status and Disposition: Inpatient. Anticipate discharge to home once medically stable, likely tomorrow AM.
[2018-06-19] MEDS: Atorvastatin* 40 MG TAB PO SCH (17:52)
[2018-06-20] MEDS: amLODIPine TAB* 5 MG PO SCH ×2 (04:16→12:53)
[2018-06-20] MEDS: Levothyroxine TAB* 88 MCG TAB PO SCH (06:13)
[2018-06-20] MEDS: Heparin VIAL(*) 5000 UNITS/ML VIAL (FIVE THOUSAND) SUBCUT SCH ×2 (06:13→14:14)
[2018-06-20 08:42] VITALS: BP 162/68
[2018-06-20] MEDS: Lisinopril TAB* 10 MG PO SCH (10:03)
[2018-06-20] MEDS: Clopidogrel TAB* 75 MG PO SCH (10:05)
[2018-06-20] MEDS: Cholecalciferol TAB* 1000 UNITS PO SCH (10:06)
[2018-06-20] MEDS: Aspirin 81 mg CHEW TAB* 81 MG TAB.CHEW PO SCH (10:06)
--- NOTE | 2018-06-20 12:29 | DS ---
ADDENDUM NOW INCLUDED ON THIS REPORT CC: Dr. Ricky Herr * DATE OF ADMISSION: 06/16/2018. DATE OF DISCHARGE: 06/20/2018. ADMITTING HOSPITALIST: Dr. Shantanu Grace. ATTENDING HOSPITALIST WHILE IN THE HOSPITAL: Dr. Halley Parikh * (dictated by SOCRATES Knott). PRIMARY CARE PHYSICIAN: Family doctor in [place]. ADMISSION DIAGNOSES: 1. Memory loss, confusion times six days. 2. Hypertension. 3. Hypothyroidism. 4. Stroke-like symptoms. DISCHARGE DIAGNOSES: 1. Memory loss, confusion times six days. 2. Hypertension. 3. Hypothyroidism. 4. Stroke-like symptoms. 5. Right thalamic and basal ganglia infarct. CONSULTATIONS: Dr. Katiana Kimball and Dr. Lee Morales from the Neurology department. PROCEDURES: None. HISTORY OF PRESENT ILLNESS: Ms. Marin is an 87-year-old female who is relatively healthy given her age with a past medical history only significant for hypertension and hypothyroidism. The patient presented to the emergency room after she was brought by her friend who she is close with when he realized that she had been very vague and there was a large deficit in her memory dating a few days ago. She denied any weakness and numbness, but noted that she basically "dropped" a few days from her memory for no apparent reason. She denies any similar complaints in the past or a history of stroke or TIA's. She did not have any bruises or weakness and she did not complain of any falls or head injury. She remembered eating breakfast a week ago and very much forgot anything happened afterwards. She had an extensive evaluation in the emergency room, including CT scan of the head that revealed some asymmetric multifocal hypoattenuation at the right temporal lobe that was suspicious warranting further work-up. Again, the patient experienced no other neurological deficit, but given her long-standing amnesia and her cognitive changes, we were asked to see the patient to consider admission and for neurological consultation. HOSPITAL COURSE: The patient was admitted on 06/16/2018 under Hospitalist services. She had an EKG done revealing no evidence of atrial fibrillation and also had transthoracic echocardiogram that concluded normal ventricular wall motion with good ejection fraction greater than 65 percent. There was no evidence of any emboli or vegetations on the valves. The patient also had electroencephalogram at her admission that revealed an abnormal finding due to generalized slowing of background rhythm diffusely, but there was no focal epileptiform features such as seizure. Formal neurological consultation was obtained and a brain MRI had to wait until Sunday since the patient was admitted on Sunday evening. She had her MRI done that revealed restricted diffusion to the left thalamus and basal ganglia consistent with an acute infarct. The patient was very stable during her admission to the telemetry unit. Her laboratory work-up was done on a daily basis that revealed normal hemoglobin and hematocrit, normal coagulation studies, and normal chemistry panel. Her thyroid hormone panel was obtained since her TSH was noted to be markedly decreased at 0.05; however, the patient told us that she was recently adjusting her thyroid dose likely because her T4 level was elevated. She had no other symptoms. She was also noted to be hypertensive for which her Amlodipine dose was increased to 2.5 mg. She continued to do well with physical therapy and speech therapy. We discussed with her family the prognosis of her stroke and how to medically optimize her health status to prevent any further strokes in the future. Recommendation from Neurology was to start her on Plavix and Lipitor. Lipid panel was obtained during her admission that revealed normal a cholesterol total of 188 with LDL of 113 and HDL of 60 and triglycerides of 73. The patient had a social work consultation and initially the plan was for her to go back home in [place], [place] with her niece to arrange for home health care regarding her PT and speech therapy. On the morning of discharge, family plans have changed and they decided to take the patient back to her hometown in [place] over the weekend for which home healthcare plans have been cancelled in the [facility]. I also had a discussion with her niece as well as the patient about the necessity for not letting her drive until cleared by primary care physician. All their questions were answered and updated medication list is included in this discharge summary. PHYSICAL EXAMINATION: The patient on exam was stable today with vitals revealing a temperature of 99.2, blood pressure 162/68, heart rate of 85, respiration of 16 with O2 sat of 94 percent on room air. Her ENT exam equal reactive pupils and anicteric sclerae. Her neck was supple and trachea midline without thyroid enlargement. Her heart was regular rate and rhythm without rubs , murmurs, or gallops. Her lungs were clear to auscultation bilaterally. Her extremities were without cyanosis, clubbing, or edema. The patient will be stable to be discharged to home and she will follow-up with her primary care physician in [facility] tomorrow in [place] and also arrange to follow-up with her primary care physician at her hometown in [place] early next week. DISCHARGE MEDICATIONS: 1. Aspirin 81 mg p.o. daily. 2. Vitamin D3 2,000 units p.o. daily. 3. Synthroid 88 mcg p.o. daily. 4. Lisinopril 10 mg p.o. daily. 5. Multivitamins one tablet p.o. daily. 6. Norvasc 2.5 mg p.o. daily. 7. Lipitor 40 mg p.o. daily. 8. Plavix 75 mg p.o. daily. SOCRATES KNOTT ADDENDUM: DATE OF ADMISSION: 06/18/18 DATE OF DISCHARGE: 06/20/18 ATTENDING HOSPITALIST: Dr. Halley Parikh. All the details were provided on the previous discharge summary. While the patient was getting her IV safe site discontinued, I was contacted by the nursing staff with complaints of a scanty amount of purulent discharge noted. The patient herself denied any pain, fever, or arm tenderness. On exam , there is a mild amount of erythema surrounding the left antecubital area with no streaking noted and no warmth or tenderness on exam. Where the IV was discontinued, I added a moderate amount of pressure with no purulent discharge noted or bleeding. The patient appeared to be stable. There was no evidence of venous phlebitis at this point; however, I will start her on oral Keflex and prior to starting antibiotic, I will draw 1 set of blood culture for which the results are pending right now. I had a discussion with the patient and her niece on that regard, she is still stable for discharge today. She will start her Keflex this evening and continue to put warm compresses on the left antecubital area. We will await the results of her blood culture and possibly call her if there is any conflict or anything grew. Otherwise, she will follow up with her primary care physician as planned. They both seem to be in agreement and a discharge plan is in effect and follow up as addressed in the main discharge summary. SOCRATES KNOTT [id number]/[facility]PS #: [id number]/CPS #: [id number] JARET
[2018-06-20] MEDS: ZEAXANTHIN PO SCH (12:53)
[2018-06-20] MEDS: LUTEIN PO SCH (12:53)
[2018-06-20] MEDS: VIT C PO SCH (12:53)
[2018-06-20] MEDS: [UNRECOGNIZED DRUG - OTHER] PO SCH (12:53)
[2018-06-20] MEDS: ZINC PO SCH (12:53)
--- NOTE | 2018-06-20 21:09 | DS ---
DISCHARGE SUMMARY: ADDENDUM: DATE OF ADMISSION: 06/18/18 DATE OF DISCHARGE: 06/20/18 ATTENDING HOSPITALIST: Dr. Halley Parikh. All the details were provided on the previous discharge summary. While the patient was getting her IV safe site discontinued, I was contacted by the nursing staff with complaints of a scanty amount of purulent discharge noted. The patient herself denied any pain, fever, or arm tenderness. On exam , there is a mild amount of erythema surrounding the left antecubital area with no streaking noted and no warmth or tenderness on exam. Where the IV was discontinued, I added a moderate amount of pressure with no purulent discharge noted or bleeding. The patient appeared to be stable. There was no evidence of venous phlebitis at this point; however, I will start her on oral Keflex and prior to starting antibiotic, I will draw 1 set of blood culture for which the results are pending right now. I had a discussion with the patient and her niece on that regard, she is still stable for discharge today. She will start her Keflex this evening and continue to put warm compresses on the left antecubital area. We will await the results of her blood culture and possibly call her if there is any conflict or anything grew. Otherwise, she will follow up with her primary care physician as planned. They both seem to be in agreement and a discharge plan is in effect and follow up as addressed in the main discharge summary. SOCRATES KNOTT [id number]/[facility] #: [id number] JARET
== END 2018-06-20 15:20 | disposition home health service (06) | DRG 66 ==
LOC: ED 14:05 → MEDTELE 18:51 → OBSVTOIN 06-18 12:48
PROVIDERS: ADMIT Internal Medicine; ATTEND Hospitalist
PROC: 4A00X4Z Measurement of Central Nervous Electrical Activity, External Approach (ICD-10-PCS; principal; 2018-06-18)
DX: I63.9 Cerebral infarction, unspecified (principal); R41.3 Other amnesia; I10 Essential (primary) hypertension; E03.9 Hypothyroidism, unspecified; R40.2412 Glasgow coma scale score 13-15, at arrival to emergency department; R29.700 NIHSS score 0; Z88.1 Allergy status to other antibiotic agents; Z90.710 Acquired absence of both cervix and uterus; Z83.3 Family history of diabetes mellitus; Z87.891 Personal history of nicotine dependence; Z72.89 Other problems related to lifestyle; Z79.02 Long term (current) use of antithrombotics/antiplatelets
CPT/HCPCS: 36415; 70450; 70496; 70498; 70553; 71045; 80048; 80053; 80061; 81003; 81015; 82550; 83605; 83690; 83735; 84436; 84439; 84443; 84479; 84484; 85025; 85610; 85730; 87040; 87086; 93005; 93306; 93880; 95816; 99284; A9270-GY; A9579; G0378; G8978-GP-CI; G8979-GP-CI; J1644; J3475; Q9967